=== PATIENT | male | born 2005 | race Caucasian/White ===

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

== ENCOUNTER 2025-05-17 09:20 | Outpatient (CLI) | payer OTHER, SELFPAY | END 2025-05-17 09:21 | disposition home or self-care (01) | PROVIDERS: PCP Physician Assistant; Visit Provider Family Medicine | DX: M54.16 Radiculopathy, lumbar region (principal); M51.26 Other intervertebral disc displacement, lumbar region | CPT/HCPCS: 64483; J1100; Q9966 ==